=== PATIENT | female | born 1945 ===

== ENCOUNTER 2020-03-02 02:52 | Observation (INO) | payer OTHER ==
[2020-03-02 03:22] VITALS: BMI 26.4
[2020-03-02] MEDS ORDERED: Mag-Al 1200 mg/1200 mg/30 ML UDCUP PO PRN (04:03)
[2020-03-02] MEDS ORDERED: Morphine 4 MG/ML VIAL SLOW IVP PRN (04:03)
[2020-03-02] MEDS ORDERED: Promethazine HCl 25 MG/ML VIAL IM PRN ×2 (04:03→15:04)
[2020-03-02] MEDS ORDERED: Calcium Carbonate 500 MG ChewTAB PO PRN (04:03)
[2020-03-02] MEDS ORDERED: Ondansetron PF 4 MG/2 ML Vial IVP PRN (04:03)
[2020-03-02] MEDS ORDERED: Morphine 2 MG/ML VIAL SLOW IVP PRN (04:03)
[2020-03-02] MEDS ORDERED: Dextrose 50% Abboject 50 ML SYRINGE SLOW IVP PRN (04:03)
[2020-03-02] MEDS ORDERED: Dextrose 5% in Water 1,000 ML IV PRN (04:03)
[2020-03-02] MEDS ORDERED: hydrALAZINE 20 MG/ML VIAL SLOW IVP PRN (04:03)
[2020-03-02 05:56] LABS: #Basophils 0.1 thou/uL (0.0-0.2); #Eosinphils 0.1 thou/uL (0.0-0.7); #Lymphocytes 2.5 thou/uL (1.20-3.40); #Monocytes 0.6 thou/uL (0.11-0.59); #Neutrophils 4.1 thou/uL (1.40-6.50); %Basophils 0.9 % (0.0-1.0); %Eosinophils 1.3 % (0.0-10.0); %Lymphocytes 33.9 % (21.0-51.0); %Monocytes 7.9 % (0.0-10.0); %Neutrophils 56.1 % (42.0-75.0); Hemoglobin 14.9 g/dL (12.0-16.0); Mean Corpuscular HGB CONC 34.2 g/dL (32.0-36.0); Mean Corpuscular Hemoglobin 31.8 pg (27.0-31.0); Platelet Count 314 thou/uL (130-400); RBC Distribution Width 13.7 % (11.5-14.5); Red Blood Cell (RBC) Count 4.69 mill/uL (4.20-5.40); White Blood Cell (WBC) Count 7.3 thou/uL (4.8-10.8)
[2020-03-02] MEDS: D5 1/2 NS w/20 mEq KCL 1,000 ML IV SCH ×3 (06:15→23:09)
[2020-03-02 06:17] LABS: ALT (SGPT) 334 U/L (8-55); AST (SGOT) 504 U/L (5-34); Albumin 3.7 g/dL (3.4-4.8); Alkaline Phosphatase 90 U/L (40-110); Anion Gap 14 mmol/L (10-20); BUN (Urea Nitrogen) 10 mg/dL (9.8-20.1); Bilirubin, Total 2.1 mg/dL (0.2-1.2); Calc. Creatinine Clearance 66 mL/min (70-130); Calcium 9.3 mg/dL (7.8-10.44); Carbon Dioxide 25 mmol/L (23-31); Chloride 106 mmol/L (98-107); Estimated GFR-MDRD 76; Globulin 2.6 g/dL (2.4-3.5); Glucose 113 mg/dL (83-110); Lipase 200 U/L (8-78); Potassium 3.5 mmol/L (3.5-5.1); Protein, Total 6.3 g/dL (6.0-8.3); Sodium 141 mmol/L (136-145)
[2020-03-02] MEDS: Famotidine/PF 20 mg/2ml Vial SLOW IVP SCH ×2 (08:15→20:15)
[2020-03-02] MEDS: Piperacillin/Tazobactam 3.375 GM in Sodium Chloride 0.9% 100 ML IVPB SCH ×3 (08:15→20:14)
[2020-03-02] MEDS: Famotidine 20 MG TAB PO SCH ×2 (08:16→20:52)
[2020-03-02] MEDS ORDERED: FLU VACC QS2020-21(65YR UP)/PF 240 MCG/0.7 ML SYRINGE IM ONE (09:00)
[2020-03-02] MEDS ORDERED: Lidocaine 1% PF 5 ML VIAL ONE (10:19)
[2020-03-02] MEDS ORDERED: PROPOFOL 200 MG/20 ML VIAL ONE (10:19)
[2020-03-02] MEDS ORDERED: Ondansetron PF 4 MG/2 ML Vial ONE (10:19)
[2020-03-02] MEDS ORDERED: Rocuronium Bromide 10 MG/ML (10ML VIAL) ONE (10:19)
[2020-03-02] MEDS ORDERED: Dexamethasone 20 MG/5 ML VIAL ONE (10:19)
--- NOTE | 2020-03-02 11:30 | HP ---
CHIEF COMPLAINT: Abdominal pain. HISTORY OF PRESENT ILLNESS: Ms. Turner is a 74-year-old woman, who reported sudden onset of lower chest pain radiating down into her abdomen and up into her right shoulder shortly after eating [employer] for dinner. She thought that it was just gas pain, so she took some Tums, but this did not help at all and the pain was not getting any better, so she went to a local freestanding emergency room. Cardiac workup there including EKG and troponins were negative. Her white count was found to be mildly elevated and she was found to be tender to palpation in the right upper quadrant and epigastrium. The gallbladder ultrasound was obtained, which showed gallstones, but no pericholecystic fluid or wall thickening or biliary dilatation. Due to her persistent pain, she was sent to CT, which showed a dilated gallbladder concerning for acute cholecystitis. Her pain had not improved, so they arranged for transport to [place] for a cholecystectomy. She was noted to have a mild increase in AST and ALT as well as a mildly elevated white count. On arrival here in the early hours of this morning, she stated that her pain had actually significantly improved since that time and she was not having any abdominal pain except for with palpation. She denied any history of nausea, vomiting, fevers, chills, jaundice, or icterus. She has not had any previous similar episodes before. She has an excellent functional status and can walk a mile and a half without resting and easily walk up a flight of stairs without difficulty. She denies any known cardiac disease. She is a pack-a-day smoker and has a chronic dry cough, but no significant dyspnea on exertion. PAST MEDICAL HISTORY: Osteoporosis and tobacco abuse. PAST SURGICAL HISTORY: Bilateral knees and left shoulder surgery and back surgery, but no abdominal operations. FAMILY HISTORY: Cancer in half-sister, she does not know many details, but thinks it may be brain cancer since it affected her speech and her walking. She does not know if it started in the brain or is metastatic from another site. There is also history of gallstones in her daughter, it sounds like had some complications with a bile leak postoperatively. OUTPATIENT MEDICATIONS: Fosamax once weekly, she does not know the dose. ALLERGIES: NO KNOWN DRUG ALLERGIES. SOCIAL HISTORY: She smokes a pack a day, but does not drink or use illicit drugs. REVIEW OF SYSTEMS: Ten system review of systems is negative except per HPI. PHYSICAL EXAMINATION: GENERAL: Reveals a healthy elderly woman, who appears younger than her stated age. She is in no acute distress. She does not have any jaundice or icterus. She is not flushed or toxic in appearance. She moves about easily without evidence of pain. VITAL SIGNS: She has been afebrile since her admission to our hospital. Blood pressure is mildly to moderately elevated at 140/63 to 159/66. She was more hypertensive in the emergency room when she was having her pain at 183/80. Room air saturations are normal at 96%. She is breathing 14 to 18 times a minute. HEENT: Unremarkable. NECK: Supple without lymphadenopathy or thyroid nodules. HEART: Regular in its rate and rhythm without murmurs, rubs, or gallops. LUNGS: Clear to auscultation without wheezing or crackles. No pain with deep inspiration. ABDOMEN: Soft and nondistended. No palpable masses or hernias. She has mild tenderness to palpation in the right upper quadrant and epigastrium, but no rigidity, rebound, or guarding, and negative Kelley sign. EXTREMITIES: Warm and well perfused without pedal edema. Normal distal pulses. NEURO: No focal deficits. PSYCHIATRIC: Alert, oriented, and appropriate. Answering questions easily and asking appropriate questions herself. Normal affect. LABORATORY DATA: White count was initially elevated at 13 at the outside ER with a left shift, this has come back down to normal this morning at 7.3. LFTs showed a mild elevation in ALT to 55 and AST to 104, but total bilirubin and alkaline phosphatase were normal. This morning, ALT is 334, AST is 504, and bilirubin is 2.1, all up from before. She had a moderate elevation in her lipase to 477, which is about 4 times normal range. This morning, lipase was 200 which is about twice normal range. Imaging reports from the outside ER reviewed and did not show any acute findings except for the gallbladder. ASSESSMENT: Cholelithiasis and cholecystitis with possible choledocholithiasis and gallstone pancreatitis. The patient has had a significant clinical improvement in her pain. Her liver enzymes have gone up somewhat, but this may be coming down from their peak. I have discussed her case with Dr. Rios of Gastroenterology and he is going to see her. She will be consented for laparoscopic cholecystectomy with intraoperative cholangiogram with possible ERCP to follow if her cholangiogram is abnormal. She is receiving scheduled Zosyn and shows no signs of toxicity or sepsis. I believe that she did have choledocholithiasis. She has likely passed her stone based on her clinical course. The diagnosis and recommended treatment were discussed with the patient in detail. The risks of surgery were also discussed. These include, but are not limited to, bleeding; infection; risks of anesthesia; damage to nearby structures including bowel, liver, and bile duct; need for open surgery; need for other procedures including ERCP. She understands and accepts these risks and wishes to proceed and has been posted for the OR schedule today. All of her questions were answered. Job ID: [id number]
[2020-03-02] MEDS ORDERED: Lidocaine 1% w/Epinephrine 1:100K 20 ML VIAL ONE (13:08)
[2020-03-02] MEDS ORDERED: Bupivacaine 0.25% HCL 30 ML VIAL ONE (13:08)
[2020-03-02] MEDS ORDERED: Fentanyl 100 MCG/2 ML VIAL ONE ×2 (13:10→14:33)
[2020-03-02] MEDS ORDERED: SUGAMMADEX SODIUM 200 MG/2 ML VIAL ONE (13:10)
[2020-03-02] MEDS ORDERED: Piperacillin/Tazobactam 3.375 GM VIAL ONE (13:20)
[2020-03-02] MEDS ORDERED: Sodium Chloride 0.9% 100 ML ONE (13:20)
[2020-03-02] MEDS ORDERED: Iothalamate Meglumine 60% 50 ML VIAL FS ONE (13:57)
[2020-03-02] MEDS ORDERED: HYDROmorphone 2 MG/ML VIAL SLOW IVP PRN (15:04)
[2020-03-02] MEDS ORDERED: Morphine Sulfate 2 MG/ML SYRINGE SLOW IVP PRN (15:04)
[2020-03-02] MEDS ORDERED: Ondansetron HCl/PF 4 MG/2 ML Vial IVP PRN (15:04)
[2020-03-02] MEDS ORDERED: Promethazine HCl 25 MG/ML VIAL SLOW IVP PRN (15:04)
[2020-03-02] MEDS ORDERED: PACU-Morphine 4MG/ML VIAL SLOW IVP PRN (15:04)
--- NOTE | 2020-03-02 15:15 | RAD ---
OPERATIVE CHOLANGIOGRAM FOUR VIEWS: 03/02/20 HISTORY: Intraoperative film. This shows filling of a nondilated common bile duct with emptying into the duodenum. No filling defec t. IMPRESSION: Unremarkable operative cholangiogram. POS: [facility]
[2020-03-02] MEDS ORDERED: traMADol HCl 50 MG TAB PO PRN ×2 (15:53→15:54)
[2020-03-02] MEDS ORDERED: Acetaminophen 325 MG TAB PO PRN ×2 (15:54)
[2020-03-02] MEDS ORDERED: HYDROcodone/Acetaminophen 5/325 mg Tablet PO PRN (15:54)
--- NOTE | 2020-03-02 17:16 | PDOC.OP ---
Operative Note - Operative Note Operative Note: DATE OF PROCEDURE: 03/02/2020 PROCEDURES: Laparoscopic cholecystectomy with intraoperative cholangiogram. SURGEON: Patrick Hatfield M.D. PREOPERATIVE DIAGNOSIS: Cholelithiasis and cholecystitis, possible gallstone pancreatitis POSTOPERATIVE DIAGNOSIS: Cholelithiasis and cholecystitis, possible gallstone pancreatitis, choledocholithiasis FINDINGS: Cholelithiasis with multiple stones in an enlarged cystic duct. Obstruction of the distal common bile duct able to be cleared after administration of glucagon and flushing of the bile duct. HISTORY: Patient with signs and symptoms of cholecystitis which were clinically improved and mild elevation of amylase and lipase and LFTs. Laparoscopic cholecystectomy was recommended for symptomatic relief and prevention of future episodes. Intraoperative cholangiogram was also recommended due to concern for choledocholithiasis. PROCEDURE: After informed consent was obtained and appropriate preoperative antibiotics were administered, the patient was taken to the operating room and placed in the supine position and general endotracheal anesthesia was administered. The stomach was decompressed with an OG tube and the abdomen was prepped and draped in standard sterile fashion. Local anesthesia was infused to the skin and subcutaneous tissues at the umbilical level. A transverse skin incision was made. The fascia was elevated and a Veress needle was placed into the abdominal cavity without difficulty. Opening pressure was less than 5 and carbon dioxide gas easily insufflated to an intra-abdominal pressure of 15, which the patient tolerated well. The Veress needle was withdrawn and a Clear view port advanced under direct vision. The abdominal cavity was carefully examined. There was no evidence of Veress needle or of trocar injury. Local anesthesia was infused to the skin and subcutaneous tissues at the epigastric, right upper quadrant, and right lateral abdominal sites and trocars were placed under direct vision of the laparoscope. The fundus of the gallbladder was grasped and retracted superiorly. The infundibulum was grasped and retracted laterally. The serosa was stripped inferiorly at the level of the neck of the gallbladder exposing the cystic duct and artery which were traced clearly to their insertion in the gallbladder. These were dissected free circumferentially and the cystic duct was clipped at the level of the neck of the gallbladder. The cystic artery was clipped but not divided. An incision was made in the cystic duct inferior to the clip and clear bile was seen to flow from the cystic duct incision and this appeared to be under pressure. With milking of the cystic duct up toward the incision several small stones were able to be pushed out of the cystic duct. With compression of the common bile duct upward toward the cystic duct there was some sludge extruded but no additional stones. A cholangiogram catheter was introduced and placed into the cystic duct and secured with a clip. A cholangiogram was obtained which showed an adequate length of cystic duct. There was an abrupt cut off at the distal common bile duct with no flow of contrast into the duodenum. Glucagon was administered and allowed to circulate for 3 minutes following which the duct was irrigated with saline with some resistance to flow. An additional cholangiogram was obtained which showed minimal flow of contrast into the duodenum. The duct was flushed again with saline and there was a sudden loss of resistance. A third cholangiogram showed brisk flow of contrast into the duodenum without evidence of filling defects or obstruction and without retrograde flow into the common hepatic duct. It was felt that she had had an obstructing distal common bile duct stone which had been dislodged. The cholangiogram catheter was removed and the cystic duct clipped below the incision in the cystic duct. The cystic duct was divided between these clips and the previously placed clip. The cystic artery was clipped and divided between the previously placed clips. The gallbladder was then dissected free of the gallbladder bed using hook electrocautery. Prior to complete removal of the gallbladder from the gallbladder bed, the area of the cystic duct and artery stumps was examined. The clips were in good position completely across these structures and there was no bleeding and no leakage of bile. The gallbladder was then placed into an EndoCatch bag and drawn out through the epigastric incision. The epigastric trocar was replaced and the operative site easily irrigated to clear. There was no significant bleeding or spillage of bile. The epigastric trocar was removed and the fascia closed under direct laparoscopic vision with a 0 Vicryl suture on a GraNee needle in a [id number] manner with excellent technical result. The right upper quadrant and right lateral abdominal trocars were removed and hemostasis verified. Carbon dioxide gas was allowed to desufflate through the umbilical trocar which was then removed. The skin incisions were closed with 4-0 subcuticular Monocryl sutures and Dermabond dressings were placed. The patient was extubated and taken to the recovery room in good condition. There were no complications. ESTIMATED BLOOD LOSS: Minimal. SPECIMEN : Gallbladder and contents.
[2020-03-03] MEDS: Piperacillin/Tazobactam 3.375 GM in Sodium Chloride 0.9% 100 ML IVPB SCH ×2 (02:00→08:28)
[2020-03-03] MEDS: D5 1/2 NS w/20 mEq KCL 1,000 ML IV SCH (02:01)
[2020-03-03 05:09] LABS: #Lymphocytes 0.8 thou/uL (1.20-3.40); #Monocytes 0.5 thou/uL (0.11-0.59); #Neutrophils 6.5 thou/uL (1.40-6.50); %Basophils 0.5 % (0.0-1.0); %Eosinophils 0.1 % (0.0-10.0); %Lymphocytes 10.1 % (21.0-51.0); %Monocytes 6.2 % (0.0-10.0); %Neutrophils 83.1 % (42.0-75.0); Hemoglobin 14.3 g/dL (12.0-16.0); Mean Corpuscular HGB CONC 33.6 g/dL (32.0-36.0); Mean Corpuscular Hemoglobin 31.2 pg (27.0-31.0); Mean Platelet Volume 8.4 fL (7.4-10.4); Platelet Count 303 thou/uL (130-400); RBC Distribution Width 13.9 % (11.5-14.5); Red Blood Cell (RBC) Count 4.58 mill/uL (4.20-5.40); White Blood Cell (WBC) Count 7.8 thou/uL (4.8-10.8)
[2020-03-03 06:01] LABS: ALT (SGPT) 376 U/L (8-55); AST (SGOT) 224 U/L (5-34); Albumin 3.4 g/dL (3.4-4.8); Alkaline Phosphatase 97 U/L (40-110); Anion Gap 13 mmol/L (10-20); BUN (Urea Nitrogen) 7 mg/dL (9.8-20.1); Bilirubin, Total 1.4 mg/dL (0.2-1.2); Calc. Creatinine Clearance 70 mL/min (70-130); Carbon Dioxide 22 mmol/L (23-31); Chloride 111 mmol/L (98-107); Estimated GFR-MDRD 80; Globulin 2.5 g/dL (2.4-3.5); Glucose 139 mg/dL (83-110); Lipase 10 U/L (8-78); Potassium 3.8 mmol/L (3.5-5.1); Protein, Total 5.9 g/dL (6.0-8.3); Sodium 142 mmol/L (136-145)
--- NOTE | 2020-03-03 06:07 | CON ---
DATE OF CONSULTATION: 03/02/2020 REASON FOR CONSULT: Possible need for ERCP. HISTORY: Ms. Turner is a pleasant 74-year-old female who came to the hospital for upper abdominal pain, radiating to her back and abdomen and upper and lower chest, lasting after eating fast food. Tums did not help. She went to the emergency room where cardiac evaluation was negative, but her white count was mildly up. Ultrasound of the gallbladder showed gallstones. Persistent pain. She has had a CAT scan that showed dilated gallbladder concerning for acute cholecystitis and she was transferred to this hospital for cholecystectomy. Initially, her AST and ALT were up a bit, then came down, but this morning they were up. Her pain is much better. She has had no nausea or vomiting, rigors or chills. She has had no bouts like this in the past. PAST MEDICAL HISTORY: Osteoporosis, tobacco use. PAST SURGICAL HISTORY: Bilateral knee replacements, shoulder surgery, back surgery. FAMILY HISTORY: Malignancy in a half sister of unclear etiology. Daughter with gallstones. ALLERGIES: NONE KNOWN. SOCIAL HISTORY: She smokes a pack a day. She does not drink. REVIEW OF SYSTEMS: Negative for rashes, myalgias, arthralgias, weight loss, weight gain, melena, hematochezia, or hematemesis. MEDICATIONS: 1. IV fluids. 2. DuoNeb. 3. Pepcid p.r.n. 4. Morphine p.r.n. 5. Zosyn. PHYSICAL EXAMINATION: VITAL SIGNS: Temperature 98, T-max 98.4, pulse 74, blood pressure 140/63. ABDOMEN: Soft, nontender. There are no masses or hepatosplenomegaly in the abdomen. LUNGS: Clear. HEART: Regular. No rubs or murmurs. EXTREMITIES: No clubbing, cyanosis, or edema. NEUROLOGIC: Patient is alert and oriented to person, place, time. Daughter is at bedside. LABORATORY DATA: White count 7.3, hemoglobin 14.9, platelet count 314. Chemistry; sodium 141, potassium 3.5, BUN and creatinine are 10 and 0.75. Bilirubin was 2.1 at 0500 this morning, AST and ALT are 504 and 334, and lipase was 200. This was a little bit up from what they were at the outside free-standing ER. PLAN: Agree with plans for laparoscopic cholecystectomy. The patient has no significant pain at this time. She may have passed a stone. If IOC is positive, I will be available to perform ERCP with the anesthetic after the cholecystectomy. I have talked with the patient and her daughter about an ERCP. Risks, benefits, and possible complications including perforation, bleeding, reaction to medication, aspiration. They are prepared to proceed. Job ID: [id number]
[2020-03-03 07:38] VITALS: BP 127/70; TEMP 98.6
--- NOTE | 2020-03-03 08:14 | DIS ---
DATE OF ADMISSION: 03/02/2020 DATE OF DISCHARGE: 03/03/2020 ADMISSION DIAGNOSIS: Cholecystitis with hyperbilirubinemia. POSTOPERATIVE DIAGNOSIS: Cholecystitis with hyperbilirubinemia. PROCEDURE PERFORMED: Laparoscopic cholecystectomy with intraoperative cholangiogram. ADMISSION HISTORY: The patient is a 74-year-old female. She presented to the hospital through the emergency room and was seen by Dr. Hatfield. She was admitted to the hospital for treatment of abdominal pain with hyperbilirubinemia. Her bilirubin level is noted to be elevated at 2.1 with mild elevation of lipase at 200. HOSPITAL COURSE: The patient was taken to the operating room Dr. Hatfield, where laparoscopic cholecystectomy was performed. Initial cholangiogram revealed obstruction of the duct. This resolved after glucagon administration and pressure-assisted cholangiogram. A small stone appeared to pass through the duct into the duodenum. This morning, the patient feels well. She is hungry and tolerating her diet. Her liver functions have normalized with a bilirubin dropping down to 1.4 and lipase is normal at 10. Her CBC remains normal. Her examination is unremarkable and her vital signs are stable. In summary, she is doing well following her cholecystectomy and cholangiogram. She is stable for discharge today. She will be given discharge prescriptions per Dr. Hatfield and follow up with Dr. Hatfield in about 2 weeks. Job ID: [id number]
[2020-03-03] MEDS: Famotidine/PF 20 mg/2ml Vial SLOW IVP SCH (08:24)
[2020-03-03] MEDS: Famotidine 20 MG TAB PO SCH (08:28)
== END 2020-03-03 10:45 | disposition home or self-care (01) ==
LOC: SJJU 02:52 → INTOOBSV 02:52
PROVIDERS: ADMIT Surgery; ATTEND Surgery
PROC: 0FT44ZZ Resection of Gallbladder, Percutaneous Endoscopic Approach (ICD-10-PCS; principal; 2020-03-02)
PROC: BF131ZZ Fluoroscopy of Gallbladder and Bile Ducts using Low Osmolar Contrast (ICD-10-PCS; 2020-03-02)
DX: K80.11 Calculus of gallbladder with chronic cholecystitis with obstruction (principal); F17.210 Nicotine dependence, cigarettes, uncomplicated; M81.0 Age-related osteoporosis without current pathological fracture; Z79.83 Long term (current) use of bisphosphonates
CPT/HCPCS: 36415; 47532; 80053; 83690; 85025; 88304; 96365; 96375; 96376; G0378; J1100; J1610; J2405; J2543; J2704; J3010; J3480; J3490; S0020; S0028